=== PATIENT | male | born 1975 | race Two or more races ===

== ENCOUNTER 2024-06-02 09:00 | Inpatient (IN) | payer OTHER ==
[~2024-06-02] VITALS: Ht 188 cm; Wt 163.9 kg
--- NOTE | 2024-06-02 09:27 | ED.PDOC ---
HPI Comments 49 year old male presents to the ED with a chief complaint of chest pain onset last night. Patient states he began experiencing chest pain, described as a constant, sharp, pressure sensation as well as shortness of breath, diarrhea. For the past 4 days, patient noticed irregular heartbeats. PMHx HTN, Thyroid. Denies nausea, vomiting, abdominal pain, headache, dizziness, blurry vision, fevers, chills. No other symptoms or modifying factors present at this time. Chief Complaint: Chest Pain Time Seen by MD: 09:15 Reviewed Notes: Medications, Allergies Allergies: Coded Allergies: NO KNOWN ALLERGIES (Unverified , 06/02/24) Information Source: Patient Mode of Arrival: Ambulatory Severity: Moderate Timing: Days Duration: Since onset Prehospital treatment: None Location: Substernal Radiation: No Radiation Quality: Sharp, Pressure Onset: At Rest Cardiac Risk Factors: HTN PE Risk Factors: None History of: None Modifying Factors: Nothing Associated Signs and Symptoms: SOB, Other (diarrhea) Past Medical History PAST MEDICAL HISTORY: HTN, Thyroid Surgical History: Tonsillectomy Surgical History (Other): gastric bypass Family History Family History: Unknown Social History Smoker: Non-Smoker Alcohol: Denies ETOH Use Drugs: Denies Drug Use Lives In: Home Constitutional: denies: chills, diaphoresis, fatigue, fever, malaise, sweats, weakness, others EENTM: denies: blurred vision, double vision, ear bleeding, ear discharge, ear drainage, ear pain, ear ringing, eye pain, eye redness, hearing loss, mouth pain, mouth swelling, nasal discharge, nose bleeding, nose congestion, nose pain, photophobia, tearing, throat pain, throat swelling, voice changes, others Respiratory: reports: shortness of breath; denies: cough, hemoptysis, orthopnea, SOB at rest, SOB with excertion, stridor, wheezing, others Cardiovascular: reports: chest pain Gastrointestinal: reports: diarrhea; denies: abdomen distended, abdominal pain, blood streaked bowels, constipated, dysphagia, difficulty swallowing, hematemesis, melena, nausea, poor appetite, poor fluid intake, rectal bleeding, rectal pain, vomiting, others Genitourinary: denies: burning, dysuria, flank pain, frequency, hematuria, incontinence, penile discharge, penile sore, pain, testicle pain, testicle swelling, urgency, others Neurological: denies: dizziness, fainting, headache, left sided numbness, left sided weakness, numbness, paresthesia, pre-existing deficit, right sided numbness, right sided weakness, seizure, speech problems, tingling, tremors, weakness, others Musculoskeletal: denies: back pain, gout, joint pain, joint swelling, muscle pain, muscle stiffness, neck pain, others Integumetry: denies: bruises, change in color, change in hair/nails, dryness, laceration, lesions, lumps, rash, wounds, others Allergic/Immunocompromised: denies: Difficulty Healing, Frequent Infections, Hives, Itching, others Hematologic/Lymphatic: denies: anemia, blood clots, easy bleeding, easy bruising, swollen glands, others Endocrine: denies: excessive hunger, excessive sweating, excessive thirst, excessive urination, flushing, intolerance to cold, intolerance to heat, unexplained weight gain, unexplained weight loss, others Psychiatric: denies: anxiety, bipolar disorder, depression, hopeless, panic disorder, schizophrenia, sleepless, suicidal, others All Other Systems: Reviewed and Negative Physical Exam General Appearance: No Apparent Distress, Normal HEENT: Normal ENT Inspection, Pharynx Normal, TMs Normal Neck: Full Range of Motion, Non-Tender, Normal, Normal Inspection Respiratory: Chest Non-Tender, Lungs Clear, No Accessory Muscle Use, No Respiratory Distress, Normal Breath Sounds Cardiovascular: No Edema, No JVD, No Murmur, No Gallop, Normal Peripheral Pulses, Regular Rate/Rhythm Breast Exam: Deferred Gastrointestinal: No Organomegaly, Non Tender, No Pulsatile Mass, Normal Bowel Sounds, Soft Genitalia: Deferred Pelvic: Deferred Rectal: Deferred Extremities: No calf tenderness, Normal capillary refill, Normal inspection, Normal range of motion, Non-tender, No pedal edema Musculoskeletal : Apperance: Normal Neurologic: Alert, [employer] II-XII nml as Tested, No Motor Deficits, Normal Affect, Normal Mood, No Sensory Deficits Cerebellar Function: Normal Reflexes: Normal Skin: Dry, Normal Color, Warm Lymphatic: No Adenopathy Was a procedure done? Was a procedure done?: No CP Differential Dx Differential Diagnosis: A-fib, A-Flutter, SD, PAC's, PVC's, Renal Failure Differential Diagnosis: HTN Essential, HTN Accelerated Differential Diagnosis: Gastritis, Myocardial Infarction, Pericarditis X-Ray, Labs, Meds, VS Vital Signs Date Time Temp Pulse Resp B/P (MAP) Pulse Ox O2 Delivery O2 Flow Rate FiO2 06/02/24 12:37 113/67 06/02/24 12:25 111 06/02/24 11:59 148 06/02/24 10:01 158 06/02/24 09:46 80 20 107/60 (76) 97 06/02/24 09:36 157 06/02/24 09:24 167 06/02/24 09:02 97.4 78 24 103/58 (73) 96 97.4 Lab Test 06/02/24 12:30 06/02/24 10:26 06/02/24 09:39 Range/Units Troponin I High Sensitivity 12 10 11 </=54 ng/L White Blood Count 13.2 H 4.4-10.8 10^3/uL Red Blood Count 5.47 4.5-5.90 10^6/uL Hemoglobin 13.1 L 13.5-17.5 g/dL Hematocrit 40.9 L 41.0-53.0 % Mean Corpuscular Volume 74.8 L 80.0-100.0 fL Mean Corpuscular Hemoglobin 24.0 L 28.0-32.0 pg Mean Corpuscular Hemoglobin Concent 32.2 32.0-36.0 g/dL Red Cell Distribution Width 18.0 H 11.8-14.3 % Platelet Count 423 140-450 10^3/uL Mean Platelet Volume 8.0 6.9-10.8 fL Neutrophils (%) (Auto) 65.3 37.0-80.0 % Lymphocytes (%) (Auto) 23.8 10.0-50.0 % Monocytes (%) (Auto) 9.1 0.0-12.0 % Eosinophils (%) (Auto) 1.0 0.0-7.0 % Basophils (%) (Auto) 0.8 0.0-2.0 % Neutrophils # (Auto) 8.6 1.6-8.6 10 ^3/uL Lymphocytes # (Auto) 3.1 0.4-5.4 10 ^3/uL Monocytes # (Auto) 1.2 0-1.3 10 ^3/uL Eosinophils # (Auto) 0.1 0-0.8 10 ^3/uL Basophils # (Auto) 0.1 0-0.2 10 ^3/uL Nucleated Red Blood Cells 0.1 % D-Dimer, Quantitative 0.40 0.0-0.49 mg/L FEU Sodium Level 138 136-145 mmol/L Potassium Level 4.2 3.5-5.1 mmol/L Chloride Level 105 98-107 mmol/L Carbon Dioxide Level 22 20-31 mmol/L Anion Gap 11 5-15 Blood Urea Nitrogen 21 9-23 mg/dL Creatinine 1.42 H 0.700-1.30 mg/dL Glomerular Filtration Rate Calc 60 >90 mL/min BUN/Creatinine Ratio 14.8 10.0-20.0 Serum Glucose 146 H 74-106 mg/dL Calcium Level 10.2 8.7-10.4 mg/dL Current Medications Medications (Trade) Dose Ordered Sig/Debbie Route Start Time Stop Time Status Last Admin Sodium Chloride 3,000 ml @ 1,000 mls/hr Q3H ONCE IV 06/02/24 10:00 06/02/24 12:59 DC 06/02/24 10:00 Diltiazem HCl 125 ml @ 5 mls/hr Q24H ONCE IV 06/02/24 12:30 06/03/24 12:29 06/02/24 12:37 [place] [id number] Ph: [phone] DIAGNOSTIC IMAGING Diagnostic Imaging Report : [id number] Signed PATIENT: JUAN LOPEZ ACCT: [id number] UNIT: [id number] : 1975 LOC: ER ROOM / BED: / AGE / SEX: 49 / M ADM STATUS: REG ER SERVICE [id number] ORDERING PHYSICIAN: YURI ZAUMDIO MD PROCEDURE(s): CXRP - CHEST PORTABLE REASON: chest pain ORDER NUMBER(s): [id number], ACCESSION NUMBER(s): [id number] CHEST RADIOGRAPH Indication: chest pain Technique: Single frontal view of the chest was obtained Comparison: None FINDINGS: Lines and Tubes: None Lungs: No focal consolidation. Pleura: No effusion. No pneumothorax. Cardiomediastinal contours: Unremarkable Bones: No acute osseous abnormality. IMPRESSION: 1. No acute cardiopulmonary disease. ATED BY: MELISSA JOSE MD DICTATED DATE/TIME: 06/02/24958 SIGNED BY: MELISSA JOSE MD SIGNED DATE/TIME: 06/02/24958 CC: Time of 1ST Reevaluation: 09:45 Reevaluation 1ST: Unchanged Patient Education/Counseling: Diagnosis, Treatment, Prognosis Family Education/Counseling: No Family Present Additional Information The following tests were ordered, and results were reviewed by me: EKG-X3, BMP, CBC,TROP -x3, XY CHEST I reviewed and agreed with the following test results read by other providers: XY CHEST I discussed treatment and results with medical personnel and: Patient Comprehensive systems review obtained and negative except for what is stated in the HPI. Departure 1 Departure Time of Disposition: 13:10 ([facility] Authorization [id number] [facility]. Rhythm was unclear. Patient has no history of heart failure and tried the patient on diltiazem. Slit patient down patient became transiently hypotensive even before the diltiazem was given. Patient was started on diltiazem drip however you can rate is continuing to climb at this time. Patient is not stable for transfer and discussed with [facility] we will admit to hospital and have Cardiology evaluate.) Impression: Primary Impression: Atrial fibrillation with RVR Additional Impression: Palpitations Disposition: ADMITTED INPATIENT Admit to: [facility] Condition: Guarded Critical Care Note Critical Care Time?: Yes Critical care comment: AFib with RVR Authorized and Performed by: Yuri Zamudio MD Total critical care time: Approximately 49 minutes Due to a high probability of clinically significant, life threatening deterioration, the patient required my highest level of preparedness to intervene emergently and I personally spent this critical care time directly and personally managing the patient. This critical care time included obtaining a history; examining the patient; pulse oximetry; ordering and review of studies; arranging urgent treatment with development of a management plan; evaluation of patient's response to treatment; frequent reassessment; and, discussions with other providers. This critical care time was performed to assess and manage the high probability of imminent, life-threatening deterioration that could result in multi-organ failure. It was exclusive of separately billable procedures and treating other patients and teaching time. Please see my other sections and the rest of the note for further information on patient assessment and treatment. Stability Stability form required: No Heart Score Heart Score: Heart Score Response (Comments) Value History Slightly Suspicious 0 EKG Repolarization Disturb 1 Age 45-64 1 Risk Factors 1 or 2 risk factors 1 Troponin Normal limit 0 Total 3 I personally scribed for YURI ZAMUDIO MD ([email or web address]) on 06/02/24 at 09:27. Electronically submitted by Cyn Bermudez ([email or web address]). I personally scribed for YURI ZAMUDIO MD ([email or web address]) on 06/02/24 at 09:31. Electronically submitted by Cyn Bermudez ([email or web address]). I personally scribed for YURI ZAMUDIO MD ([email or web address]) on 06/02/24 at 09:57. Electronically submitted by Cyn Bermudez ([email or web address]). I personally scribed for YURI ZAMUDIO MD ([email or web address]) on 06/02/24 at 10:55. Electronically submitted by Cyn Bermudez ([email or web address]). YURI ZAMUDIO MD Jun 02, 2024 09:27
[2024-06-02 09:58] LABS: Basophils # (auto) 0.1 10 ^3/uL (0-0.2); Basophils % (auto) 0.8 % (0.0-2.0); Eosinophils # (auto) 0.1 10 ^3/uL (0-0.8); Hematocrit 40.9 % (41.0-53.0); Lymphocytes # (auto) 3.1 10 ^3/uL (0.4-5.4); Lymphocytes % (auto) 23.8 % (10.0-50.0); Monocytes # (auto) 1.2 10 ^3/uL (0-1.3); Neutrophils # (auto) 8.6 10 ^3/uL (1.6-8.6); Nucleated Red Blood Cells % 0.1 %
[2024-06-02 10:00] LABS: Hemoglobin 13.1 g/dL (13.5-17.5); Mean Corpuscular Hgb Conc. 32.2 g/dL (32.0-36.0); Mean Corpuscular Volume 74.8 fL (80.0-100.0); Monocytes % (auto) 9.1 % (0.0-12.0); Neutrophils % (auto) 65.3 % (37.0-80.0); Platelet Count (auto) 423 10^3/uL (140-450); Red Blood Cells 5.47 10^6/uL (4.5-5.90); White Blood Cell 13.2 10^3/uL (4.4-10.8)
[2024-06-02] MEDS: SODIUM CHLORIDE 0.9% 3,000 ML IV ONE (10:00)
--- NOTE | 2024-06-02 10:02 | DVH ---
CHEST RADIOGRAPH Indication: chest pain Technique: Single frontal view of the chest was obtained Comparison: None FINDINGS: Lines and Tubes: None Lungs: No focal consolidation. Pleura: No effusion. No pneumothorax. Cardiomediastinal contours: Unremarkable Bones: No acute osseous abnormality. IMPRESSION: 1. No acute cardiopulmonary disease.
[2024-06-02 10:03] LABS: Chloride 105 mmol/L (98-107); Potassium 4.2 mmol/L (3.5-5.1); Sodium 138 mmol/L (136-145)
[2024-06-02 10:04] LABS: Anion Gap 11 (5-15); Calcium 10.2 mg/dL (8.7-10.4); Carbon Dioxide 22 mmol/L (20-31)
[2024-06-02 10:09] LABS: BUN/Creatinine Ratio 14.8 (10.0-20.0); Blood Urea Nitrogen 21 mg/dL (9-23)
[2024-06-02 10:11] LABS: Glucose 146 mg/dL (74-106)
[2024-06-02] MEDS: dilTIAZem 25 MG/5 ML VIAL IV ONE (12:31)
[2024-06-02] MEDS: dilTIAZem 125mg/125ml BAG KIT 125 ML IV ONE (12:37)
[2024-06-02] MEDS ORDERED: ACETAMINOPHEN 325 MG TAB PO PRN (15:15)
[2024-06-02] MEDS ORDERED: ONDANSETRON HCL 4 MG/2 ML VIAL IV PRN (15:15)
[2024-06-02] MEDS ORDERED: NITROGLYCERIN 0.4 MG SL TAB SL PRN (15:15)
[2024-06-02] MEDS ORDERED: MORPHINE SULFATE 4 MG/ML SYR/VIAL IV PRN (15:15)
[2024-06-02] MEDS ORDERED: MORPHINE SULFATE INJ 2 MG/ml SYRG IV PRN (15:15)
[2024-06-02] MEDS: dilTIAZem 125mg/125ml BAG KIT 125 ML IV SCH (15:30)
--- NOTE | 2024-06-02 15:35 | DVHHP2 ---
History of Present Illness Reason for Visit: Chest pain with shortness of breath History of Present Illness Clint Lares is a 49-year-old male with past medical history of hypertension, hypothyroidism, gastric bypass, and tonsillectomy who presents to the ED with chest pain, palpitations, nausea, diarrhea, and shortness of breath x4 days. Per patient the pain is 4/10 sharp and constant. He reports that he was sleeping at the time last night and developed the chest pain suddenly. Patient's Rajani is at the bedside and states that he has been having palpitations for the last several days. Patient also reports that he is trying to move a trailer with his right knee and strained his knee. This is an unrelated incident. Patient also reports a dry cough with no phlegm production. Patient reports that he uses a cane now to help with ambulating because he is unable to put pressure on his right foot due to the pain in his right knee. Patient denies any recent sick contacts fever, chills, lightheadedness, dizziness, numbness, tingling, or vomiting. Cardiovascular: HTN Endocrine: Hypothyroidism Past Surgical History: Other (Gastric bypass), Tonsillectomy Family History: None Smoke: No ALCOHOL: none Drugs: None Lives: with Family Domestic Violence: Neg Review of Systems Respiratory: Shortness of breath Cardiovascular: Chest Pain Gastrointestinal: Nausea, Diarrhea Allergies: Coded Allergies: NO KNOWN ALLERGIES (Unverified , 06/02/24) Medications Current Medications Medications Dose Ordered Sig/Debbie Route Start Time Stop Time Status Last Admin Dose Admin Ceftriaxone Sodium 50 ml @ 100 mls/hr DAILY@09 IV 06/02/24 15:15 UNV Aspirin 81 mg DAILY PO 06/03/24 10:00 UNV Atorvastatin Calcium 40 mg HS PO 06/02/24 22:00 UNV Morphine Sulfate 2 mg Q30MP PRN IV 06/02/24 15:15 UNV Acetaminophen 650 mg Q6HP PRN PO 06/02/24 15:15 UNV Ondansetron HCl 4 mg Q4HP PRN IV 06/02/24 15:15 UNV Nitroglycerin 0.4 mg Q5MINP PRN SL 06/02/24 15:15 UNV Morphine Sulfate 2 mg Q30M PRN IV 06/02/24 15:15 UNV Exam Vital Signs Vital Signs Date Time Temp Pulse Resp B/P (MAP) Pulse Ox O2 Delivery O2 Flow Rate FiO2 06/02/24 14:00 99 Nasal Cannula* 2 28 06/02/24 13:32 127 13 100/60 (73) 06/02/24 09:02 97.4 97.4 General Appearance: Alert, Oriented X3, Cooperative, mild distress HEENT: Atraumatic, PERRLA, EOMI, Mucous membr. moist/pink Respiratory: Clear to auscultation, Normal air movement Cardiovascular: Normal S1, Normal S2, No murmurs Abdominal: Soft, No tenderness Extremities: Normal pulses Skin: No significant lesion Neuro: Normal speech, Normal tone, Sensation intact Psych/Mental Status: Mental status NL, Mood NL Labs/Xrays Labs Test 06/02/24 12:30 06/02/24 09:39 Range/Units Troponin I High Sensitivity 12 </=54 ng/L White Blood Count 13.2 H 4.4-10.8 10^3/uL Red Blood Count 5.47 4.5-5.90 10^6/uL Hemoglobin 13.1 L 13.5-17.5 g/dL Hematocrit 40.9 L 41.0-53.0 % Mean Corpuscular Volume 74.8 L 80.0-100.0 fL Mean Corpuscular Hemoglobin 24.0 L 28.0-32.0 pg Mean Corpuscular Hemoglobin Concent 32.2 32.0-36.0 g/dL Red Cell Distribution Width 18.0 H 11.8-14.3 % Platelet Count 423 140-450 10^3/uL Mean Platelet Volume 8.0 6.9-10.8 fL Neutrophils (%) (Auto) 65.3 37.0-80.0 % Lymphocytes (%) (Auto) 23.8 10.0-50.0 % Monocytes (%) (Auto) 9.1 0.0-12.0 % Eosinophils (%) (Auto) 1.0 0.0-7.0 % Basophils (%) (Auto) 0.8 0.0-2.0 % Neutrophils # (Auto) 8.6 1.6-8.6 10 ^3/uL Lymphocytes # (Auto) 3.1 0.4-5.4 10 ^3/uL Monocytes # (Auto) 1.2 0-1.3 10 ^3/uL Eosinophils # (Auto) 0.1 0-0.8 10 ^3/uL Basophils # (Auto) 0.1 0-0.2 10 ^3/uL Nucleated Red Blood Cells 0.1 % D-Dimer, Quantitative 0.40 0.0-0.49 mg/L FEU Sodium Level 138 136-145 mmol/L Potassium Level 4.2 3.5-5.1 mmol/L Chloride Level 105 98-107 mmol/L Carbon Dioxide Level 22 20-31 mmol/L Anion Gap 11 5-15 Blood Urea Nitrogen 21 9-23 mg/dL Creatinine 1.42 H 0.700-1.30 mg/dL Glomerular Filtration Rate Calc 60 >90 mL/min BUN/Creatinine Ratio 14.8 10.0-20.0 Serum Glucose 146 H 74-106 mg/dL Calcium Level 10.2 8.7-10.4 mg/dL CHEST RADIOGRAPH Indication: chest pain Technique: Single frontal view of the chest was obtained Comparison: None FINDINGS: Lines and Tubes: None Lungs: No focal consolidation. Pleura: No effusion. No pneumothorax. Cardiomediastinal contours: Unremarkable Bones: No acute osseous abnormality. IMPRESSION: 1. No acute cardiopulmonary disease. Assessment/Plan Assessment/Plan Assessment AFib RVR Chest pain Intractable nausea and with diarrhea and shortness of breath Leukocytosis rule out sepsis History of hypertension History of hypothyroidism History of gastric bypass History of tonsillectomy Plan Admit to [facility] Diltiazem drip Lactic IV antibiotics-ceftriaxone Blood cultures Urine culture IV fluids given in ED UA D-dimer EKG Troponin negative x3 Chest x-ray noted Aspirin Statins Echo ordered UDS TSH Lipid A1c Mag level X-ray right knee ordered Home medications reconciled DVT prophylaxis-Lovenox PUD prophylaxis-Protonix Discussed plan of care with patient, patient's , and nurse Cardiology consult Plan discussed with: Patient, Spouse My Orders Orders - ANTONIO HAILE [employer]DER[employer] Procedure Category Date Status Time Ceftriaxone 1gm/50ml PHA 06/02/24 Logged D5w (Rocephin) 15:15 Admit ADMIT 06/02/24 Transmitted 15:15 Code Status CODE 06/02/24 Transmitted 15:15 Vital Signs CHAPIS 06/02/24 In Process 15:15 Gill Box Operator CHAPIS 06/02/24 In Process 15:15 Cardiac DIET 06/02/24 Transmitted Diet-2gna,Lofat,Lochol Dinner Aspirin Tablet PHA 06/03/24 Logged 10:00 Atorvastatin (Lipitor) PHA 06/02/24 Logged 22:00 Morphine Sulfate PHA 06/02/24 Logged Injection 15:15 Acetaminophen Tablet PHA 06/02/24 Logged (Tylenol Tablet) 15:15 Complete Blood Count LAB 06/03/24 Verified 04:00 Basic Metabolic Panel LAB 06/03/24 Verified 04:00 Magnesium LAB 06/03/24 Verified 04:00 Lipid Panel LAB 06/03/24 Verified 04:00 Echo 2d Mode Cardiac US 06/02/24 Logged DOP 15:15 Ondansetron Hcl PHA 06/02/24 Logged (Zofran) 15:15 Electrocardigram EKG 06/03/24 Logged 04:00 Troponin-I Hs LAB 06/02/24 Logged 15:15 Cardiac [facility] 06/02/24 In Process Rehabilitation - Outpa Nitroglycerin PHA 06/02/24 Logged Sublingual (Ntrostat 15:15 Morphine Sulfate PHA 06/02/24 Logged Injection 15:15 Stat Ekg For Chest [facility] 06/02/24 In Process Pain 15:15 Notify Md Of Changes [facility] 06/02/24 In Process From Base 15:15 Inspector Timers For [facility] 06/02/24 In Process 24 Hours 15:15 Emergency Dysrhythmia [facility] 06/02/24 In Process Protocol 15:15 Rhythm Strips Once [facility] 06/02/24 In Process Every Shift 15:15 Oxygen By Nasal RT 06/02/24 Transmitted Cannula 15:15 Thyroid Stimulating LAB 06/02/24 Logged Hormone 15:15 Hemoglobin A1c LAB 06/02/24 Logged 15:15 Magnesium LAB 06/02/24 Logged 15:15 * Cardiology Consult CONS 06/02/24 Transmitted 15:15 Diltiazem Drip PHA 06/02/24 Transmitted Cardizem 15:15 Enoxaparin Sodium PHA 06/02/24 Verified (Lovenox) 15:30 Date of Service: Jun 02, 2024 Billing Provider: ANTONIO HAILE Common Visit Codes: [id number] INP/OBS CARE (HIGH) ANTONIO HAILE Jun 02, 2024 15:35
[2024-06-02 15:42] LABS: Urine Bacteria None Seen /hpf (None Seen)
[2024-06-02] MEDS: cefTRIAXone 1GM/50ML D5W 50 ML IV SCH (15:52)
[2024-06-02 16:00] LABS: Urine Blood Negative /uL (Negative); Urine Clarity Clear (Clear); Urine Color Light-Yellow (Yellow); Urine Mucus FEW (None Seen); Urine Protein, UAD Negative (Negative); Urine Specific Gravity 1.015 (1.001-1.035); Urine Squamous Epithelial Cell None Seen /hpf (<5); Urine Urobilinogen Normal (Negative); Urine WBC 1 /HPF (0-3); Urine pH 5.5 (5.0-9.0)
--- NOTE | 2024-06-02 16:03 | DVHINCON2 ---
Date Seen: Jun 02, 2024 Referring Physician ANITA Woody Reason for Consultation Afib RVR History of Present Illness This is a 49-year-old male patient who presents to emergency room with chief complaint of chest pain, palpitations, and shortness of breath that began last night. He also describes chest pain that he states is provoked with the palpitations, intermittent, tight in nature, midsternal and nonradiating. He c omes to the emergency room for further evaluation. Initial twelve lead electrocardiogram reveals a narrow complex tachycardia, likely atrial flutter. The patient was given Cardizem 20 mg IV once and then initiated on a Cardizem drip per emergency room provider. At time of assessment, the patient appears to be in atrial fibrillation on chair trimmer with uncontrolled heart rate. Troponin levels have been negative. Significant past medical history includes atrial fibrillation (not on NOAC), hypertension, thyroid disease, and morbid obesity. The patient reports he used to see a laboratory animal care veterinarian in the past, but no longer sees one in the outpatient setting. Past Medical History Past medical history reviewed. No other significant than mentioned above. Past Surgical History Gastric bypass Tonsillectomy Cholecystectomy Family History Family history reviewed. Social History Denies the use of tobacco, alcohol or illicit drugs. Allergies: Coded Allergies: NO KNOWN ALLERGIES (Unverified , 06/02/24) Home Meds Reported Medications Methocarbamol (Methocarbamol) 750 Mg Tab, TAB PO 06/02/24 Lisinopril & Hydrochlorothiazi (Lisinopril/Hydrochlorothi) 1 Tab Tab, 10-12 MG PO DAILY, #30 TAB 5 Refills 06/02/24 Semaglutide (Ozempic) 2 Mg/3 Ml Inj, 2 MG SC QWEEKLY, INJ 06/02/24 Levothyroxine Sodium (Levothyroxine Sodium) 137 Mcg Tab, 137 MCG PO QAM for 30 Days 06/02/24 Home Meds Home medications reviewed. Current Medications Current Medications Medications (Trade) Dose Ordered Sig/Debbie Route PRN Reason Start Time Stop Time Status Last Admin Ceftriaxone Sodium 50 ml @ 100 mls/hr DAILY@09 IV 06/02/24 15:15 06/02/24 15:52 Aspirin 81 mg DAILY PO 06/03/24 10:00 Atorvastatin Calcium (Lipitor) 40 mg HS PO 06/02/24 22:00 Morphine Sulfate 2 mg Q30MP PRN IV FOR CHEST PAIN 06/02/24 15:15 06/02/24 15:39 DC Acetaminophen (Tylenol Tablet) 650 mg Q6HP PRN PO MILD PAIN (1-3 PAIN SCALE) 06/02/24 15:15 Ondansetron HCl (Zofran) 4 mg Q4HP PRN IV NAUSEA / VOMITING 06/02/24 15:15 Nitroglycerin (Ntrostat Sublingual) 0.4 mg Q5MINP PRN SL FOR CHEST PAIN 06/02/24 15:15 Morphine Sulfate 2 mg Q30M PRN IV FOR CHEST PAIN 06/02/24 15:15 Diltiazem HCl 125 ml @ 5 mls/hr Q24H IV 06/02/24 15:15 Enoxaparin Sodium (Lovenox) 40 mg DAILY SC 06/03/24 10:00 Review of Systems Constitutional: No symptom reported Ears, Nose, & Throat: No symptom reported Eyes: No symptom reported Neurological: No symptoms reported Pulmonary/Respiratory: Shortness of breath Cardiovascular: Chest pain, palpitations Gastrointestinal: No symptom reported Genitourinary: No symptom reported Musculoskeletal: No symptom reported Skin: No symptom reported Psychiatric: No symptom reported Endocrine: No symptom reported Hematologic/Lymphatic: No symptom reported Vital Signs Vital Signs Date Time Temp Pulse Resp B/P (MAP) Pulse Ox O2 Delivery O2 Flow Rate FiO2 06/02/24 14:00 99 Nasal Cannula* 2 28 06/02/24 13:32 127 13 100/60 (73) 06/02/24 09:02 97.4 97.4 Physical Exam General Appearance: Cooperative. Morbid obesity Pulmonary/Respiratory: Clear, bilateral breaths sounds. Cardiovascular/Chest: Irregular rate and rhythm. Peripheral Pulses: 2+ Radial (R). 2+ Radial (L). 2+ Pedal (R). 2+ Pedal (L) Abdominal Exam: Normal bowel sounds. Ankle Exam: Negative ankle edema Lower extremities: Negative lower extremity edema Neuro/Mental Status: A/OX4, coherent. Thoughts/Psych: Normal thought pattern. Appropriate mood and affect. Good judgment and insight. Appearance: No acute distress. Skin Exam: Normal inspection. Normal color. Warm and dry. Labs/Diagnostic Data Labs Test 06/02/24 15:14 06/02/24 12:30 06/02/24 09:39 Range/Units Troponin I High Sensitivity 12 </=54 ng/L White Blood Count 13.2 H 4.4-10.8 10^3/uL Red Blood Count 5.47 4.5-5.90 10^6/uL Hemoglobin 13.1 L 13.5-17.5 g/dL Hematocrit 40.9 L 41.0-53.0 % Mean Corpuscular Volume 74.8 L 80.0-100.0 fL Mean Corpuscular Hemoglobin 24.0 L 28.0-32.0 pg Mean Corpuscular Hemoglobin Concent 32.2 32.0-36.0 g/dL Red Cell Distribution Width 18.0 H 11.8-14.3 % Platelet Count 423 140-450 10^3/uL Mean Platelet Volume 8.0 6.9-10.8 fL Neutrophils (%) (Auto) 65.3 37.0-80.0 % Lymphocytes (%) (Auto) 23.8 10.0-50.0 % Monocytes (%) (Auto) 9.1 0.0-12.0 % Eosinophils (%) (Auto) 1.0 0.0-7.0 % Basophils (%) (Auto) 0.8 0.0-2.0 % Neutrophils # (Auto) 8.6 1.6-8.6 10 ^3/uL Lymphocytes # (Auto) 3.1 0.4-5.4 10 ^3/uL Monocytes # (Auto) 1.2 0-1.3 10 ^3/uL Eosinophils # (Auto) 0.1 0-0.8 10 ^3/uL Basophils # (Auto) 0.1 0-0.2 10 ^3/uL Nucleated Red Blood Cells 0.1 % D-Dimer, Quantitative 0.40 0.0-0.49 mg/L FEU Sodium Level 138 136-145 mmol/L Potassium Level 4.2 3.5-5.1 mmol/L Chloride Level 105 98-107 mmol/L Carbon Dioxide Level 22 20-31 mmol/L Anion Gap 11 5-15 Blood Urea Nitrogen 21 9-23 mg/dL Creatinine 1.42 H 0.700-1.30 mg/dL Glomerular Filtration Rate Calc 60 >90 mL/min BUN/Creatinine Ratio 14.8 10.0-20.0 Serum Glucose 146 H 74-106 mg/dL Calcium Level 10.2 8.7-10.4 mg/dL Magnesium Level 2.1 1.6-2.6 mg/dL Assessment Narrow complex tachycardia, likely atrial flutter Atrial fibrillation (not on NOAC therapy) Rule out structural heart disease Thyroid disease Morbid obesity Plan/Recommendation We will continue with following plan/recommendations (): * Echocardiogram to evaluate cardiac function * ?[id number] VASc score: 1 point * Initiate therapeutic Lovenox while inpatient * Rate control, beta-yesica. Up titrate as tolerated by blood pressure * Continue amiodarone drip * Monitor and replete electrolytes as needed, keep potassium greater than four and magnesium greater than two * Close Cardiac surveillance * Labs: TSH, drug screen Case discussed with . Thank you for allowing us to care for this patient. Please call with any questions or concerns. Critical care time spent: 43 minutes This medical document was created using an electronic medical record system with voice recognition software and computerized dictation system. Although this document has been carefully reviewed, there might still be some phonetic and typographical errors. Occasional wrong-word or ``sound-alike substitutions may have occurred due to the inherent limitations of voice recognition software. These areas are purely typographical due to imperfections of the software programs and do not reflect any compromise in the patient's medical care. Please read the chart carefully and recognize, using context, where these substitutions have occurred. Plan discussed with: Patient, Spouse NYHA Physical activity limitations: NA Date of Service: Jun 02, 2024 Billing Provider: OSMANY ARELLANO Cardiology Common Codes: 71400-[id number] INP/OBS CARE (High) Cardiology Consultation Codes: [id number] CONSULT <45MIN OSMANY ARELLANO Jun 02, 2024 16:03
[2024-06-02 16:19] LABS: Amphetamine Screen, Urine Neg (NEGATIVE); Barbiturate Scree,Urine Neg (NEGATIVE); Opiate Scree,Urine Neg (NEGATIVE)
[2024-06-02 16:20] LABS: Benzodiazephine Screen, Urine Neg (NEGATIVE); Cocaine Screen, Urine Neg (NEGATIVE); Phencyclidine Screen, Urine Neg (NEGATIVE)
[2024-06-02] MEDS ORDERED: LISI-285 PO (16:31)
[2024-06-02] MEDS ORDERED: SEMA2INJ3 SC (16:31)
[2024-06-02] MEDS ORDERED: LEVO137T3 PO (16:31)
[2024-06-02 17:03] LABS: Cannabinoid Screen, Urine Neg (NEGATIVE)
[2024-06-02] MEDS ORDERED: METH-1182 PO (17:18)
[2024-06-02] MEDS: ENOXAPARIN SOD 150 MG/1 ML SYRINGE SC ONE (17:26)
[2024-06-02] MEDS: AMIODARONE BOLUS KIT 100 ML IV ONE (17:33)
[2024-06-02] MEDS: PANTOPRAZOLE 40 MG/10 ML VIAL INJ IV SCH (18:08)
[2024-06-02] MEDS: AMIODARONE 360mg/200mL PREMIX 200 ML IV ONE (18:08)
[2024-06-02] MEDS: METHOCARBAMOL 500 MG TAB PO SCH (18:46)
--- NOTE | 2024-06-02 18:55 | ECG ---
[facility] Test Date: 2024-06-02 Test Time: 10:01:22 Pat Name: JUAN LOPEZ Department: ED Room: 0270T Gender: M Pantry Cook: migel : 1975 Requested By: YURI AWAN Order Number: [id number] Reading MD: Nael Curtis Measurements Intervals [place] Rate: 158 P: 216 [place]: 69 QRS: 50 QRSD: 98 T: -79 QT: 364 QTc: 590 Interpretive Statements Sinus or ectopic atrial tachycardia Repol abnrm suggests ischemia, diffuse leads Prolonged QT interval Electronically Signed On 06-03-2024 18:45:04 PDT by Nael Curtis Please click the below link to view image of tracing.
--- NOTE | 2024-06-02 18:55 | ECG ---
[facility] Test Date: 2024-06-02 Test Time: 09:24:08 Pat Name: JUAN LOPEZ Department: ED Room: 0270T Gender: M Tile Designer: chrissie : 1975 Requested By: YURI AWAN Order Number: [id number] Reading MD: Nael Curtis Measurements Intervals [place] Rate: 167 P: 109 [place]: 104 QRS: 25 QRSD: 122 T: 25 QT: 327 QTc: 546 Interpretive Statements Sinus tachycardia Ventricular premature complex Left bundle branch block Artifact in lead(s) I,III,aVL and baseline wander in lead(s) V3,V5 Electronically Signed On 06-03-2024 18:44:47 PDT by Nael Curtis Please click the below link to view image of tracing.
--- NOTE | 2024-06-02 18:57 | ECG ---
[facility] Test Date: 2024-06-02 Test Time: 12:25:32 Pat Name: JUAN LOPEZ Department: ED Room: 0270T Gender: M Marshmallow Runner: migel : 1975 Requested By: YURI AWAN Order Number: [id number] Reading MD: Nael Curtis Measurements Intervals [place] Rate: 111 P: 0 RI: 0 QRS: 48 QRSD: 173 T: -31 QT: 342 QTc: 465 Interpretive Statements Atrial fibrillation Nonspecific intraventricular conduction delay Electronically Signed On 06-03-2024 18:47:34 PDT by Nael Curtis Please click the below link to view image of tracing.
--- NOTE | 2024-06-02 18:57 | DVH ---
CLINICAL INDICATION: right knee pain TECHNIQUE: 2 radiographic views of the right knee were obtained. Comparison: None FINDINGS/IMPRESSION: There is no evidence of acute fracture or dislocation. The visualized joint space is well maintained. The alignment is anatomical. There is no radiopaque foreign body.
[2024-06-02 19:45] VITALS: PULSE 135; RESP 17; O2SAT 95
--- NOTE | 2024-06-02 20:33 | DVH ---
Bilateral lower extremity venous duplex Clinical History: ro dvt Comparison: None Technique: Duplex Doppler evaluation of the deep venous systems of both lower extremities from the co mmon femoral veins to the popliteal veins including color Doppler and spectral/pulsed waveform analys is was performed. Findings: RIGHT SIDE: The common femoral vein demonstrates appropriate compressibility and waveform variability. There is compressibility/patency of the great saphenous vein at the proximal thigh. The femoral vein demonstrates appropriate compressibility and waveform variability. The deep femoral vein demonstrates appropriate compressibility and waveform variability. The popliteal vein demonstrates appropriate compressibility and waveform variability. There is color flow at the tibioperoneal trunk and in the posterior tibial vein. LEFT SIDE: The common femoral vein demonstrates appropriate compressibility and waveform variability. There is compressibility/patency of the great saphenous vein at the proximal thigh. The femoral vein demonstrates appropriate compressibility and waveform variability. The deep femoral vein demonstrates appropriate compressibility and waveform variability. The popliteal vein demonstrates appropriate compressibility and waveform variability. There is color flow at the tibioperoneal trunk and in the posterior tibial vein. Impression: 1. No right or left femoropopliteal venous thrombosis.
[2024-06-02] MEDS: ATORVASTATIN 20 MG TAB PO SCH (21:57)
[2024-06-02] MEDS: METOPROLOL TARTRATE 25 MG TAB PO SCH (21:57)
[2024-06-03] VITALS (8 sets, daily range): BP systolic 107–124; BP diastolic 57–74; PULSE 59–132; RESP 18–20; TEMP 97.8–98.2; O2SAT 94–100
[2024-06-03] MEDS: AMIODARONE 360mg/200mL PREMIX 200 ML IV SCH
[2024-06-03] MEDS: ENOXAPARIN SOD 150 MG/1 ML SYRINGE SC SCH (05:55)
[2024-06-03] MEDS: LEVOTHYROXINE SODIUM 25 MCG TAB PO SCH (06:00)
[2024-06-03] MEDS: LEVOTHYROXINE SODIUM 112 MCG TAB PO SCH (06:00)
[2024-06-03 06:13] LABS: Basophils # (auto) 0.1 10 ^3/uL (0-0.2); Basophils % (auto) 1.4 % (0.0-2.0); Eosinophils # (auto) 0.4 10 ^3/uL (0-0.8); Eosinophils % (auto) 3.6 % (0.0-7.0); Hemoglobin 11.4 g/dL (13.5-17.5); Lymphocytes # (auto) 3.3 10 ^3/uL (0.4-5.4); Mean Corpuscular Hemoglobin 24.4 pg (28.0-32.0); Monocytes # (auto) 0.9 10 ^3/uL (0-1.3); White Blood Cell 10.1 10^3/uL (4.4-10.8)
[2024-06-03 06:15] LABS: Hematocrit 35.3 % (41.0-53.0); Lymphocytes % (auto) 32.5 % (10.0-50.0); Mean Corpuscular Hgb Conc. 32.4 g/dL (32.0-36.0); Mean Corpuscular Volume 75.4 fL (80.0-100.0); Monocytes % (auto) 8.5 % (0.0-12.0); Neutrophils # (auto) 5.5 10 ^3/uL (1.6-8.6); Platelet Count (auto) 305 10^3/uL (140-450); Red Blood Cells 4.69 10^6/uL (4.5-5.90); Red Cell Distribution Width 18.4 % (11.8-14.3)
[2024-06-03 06:32] LABS: Anion Gap 9 (5-15); Calcium 9.3 mg/dL (8.7-10.4); Carbon Dioxide 23 mmol/L (20-31); Potassium 4.1 mmol/L (3.5-5.1); Sodium 139 mmol/L (136-145)
[2024-06-03 06:33] LABS: Chloride 107 mmol/L (98-107)
[2024-06-03 06:38] LABS: BUN/Creatinine Ratio 13.5 (10.0-20.0); Blood Urea Nitrogen 17 mg/dL (9-23); Cholesterol 151 mg/dL (< 200); LDL Cholesterol 97 mg/dL (< 100); Magnesium 2.2 mg/dL (1.6-2.6)
[2024-06-03 06:39] LABS: Glucose 113 mg/dL (74-106); Triglycerides 172 mg/dL (< 150)
[2024-06-03 06:40] LABS: HDL Cholesterol 32 mg/dL (40-59)
--- NOTE | 2024-06-03 07:15 | ECG ---
[facility] Test Date: 2024-06-02 Test Time: 11:59:39 Pat Name: JUAN LOPEZ Department: ED Room: [facility]0T A Gender: M Senior Wind Turbine Technician: migel : 1975 Requested By: ANTONIO HAILE Order Number: [id number] Reading MD: Nael Curtis Measurements Intervals [place] Rate: 148 P: 164 [place]: 99 QRS: 46 QRSD: 97 T: 4 QT: 328 QTc: 515 Interpretive Statements Sinus or ectopic atrial tachycardia Abnormal R-wave progression, late transition Borderline ST elevation, inferior leads Prolonged QT interval Electronically Signed On 06-03-2024 18:46:42 PDT by Nael Curtis Please click the below link to view image of tracing.
[2024-06-03] MEDS ORDERED: ENOXAPARIN SOD 40 MG/0.4 ML SYRINGE SC SCH (10:00)
[2024-06-03] MEDS: LISINOPRIL 5 MG TAB PO SCH (10:29)
[2024-06-03] MEDS: hydroCHLOROthiazide 25 MG TAB PO SCH (10:31)
[2024-06-03] MEDS: ASPirin 81 mg TAB PO SCH (10:32)
--- NOTE | 2024-06-03 13:13 | ECG ---
[facility] Test Date: 2024-06-02 Test Time: 15:25:57 Pat Name: JUAN LOPEZ Department: ED Room: [facility]0T A Gender: M Christian Science Reader: migel : 1975 Requested By: YURI AWAN Order Number: [id number] Reading MD: Nael Curtis Measurements Intervals [place] Rate: 130 P: 0 [place]: 0 QRS: 49 QRSD: 94 T: -54 QT: 335 QTc: 493 Interpretive Statements Atrial flutter Abnormal R-wave progression, late transition Borderline repolarization abnormality Borderline prolonged QT interval Electronically Signed On 06-03-2024 18:49:00 PDT by Nael Curtis Please click the below link to view image of tracing.
--- NOTE | 2024-06-03 13:22 | DVHPNRES ---
Progress Note Date Seen: Jun 03, 2024 Resident Creating Document: ADRIÁN BORREGO RESIDENT Medical Necessity Reason Pt with a Central, PICC or Fol: No Subjective Review of Systems patient seen and examined no new complains on amio drip chest tightness improved still palpitation Objective vital signs Vital Sign Date Time Temp Pulse Resp B/P (MAP) Pulse Ox O2 Delivery O2 Flow Rate FiO2 06/03/24 10:32 60 124/66 06/03/24 08:55 98.1 19 98 98.1 06/03/24 08:00 Nasal Cannula* 2 28 Total Intake and Output 06/02/24 06/02/24 06/03/24 15:00 23:00 07:00 Intake Total 30 ml 228.32 ml 182.32 ml Balance 30 ml 228.32 ml 182.32 ml medications Current Medications Medications Dose Ordered Sig/Debbie Route Start Time Stop Time Status Last Admin Dose Admin Ceftriaxone Sodium 50 ml @ 100 mls/hr DAILY@09 IV 06/02/24 15:15 06/03/24 10:28 100 MLS/HR Aspirin 81 mg DAILY PO 06/03/24 10:00 06/03/24 10:32 81 MG Atorvastatin Calcium 40 mg HS PO 06/02/24 22:00 06/02/24 21:57 40 MG Acetaminophen 650 mg Q6HP PRN PO 06/02/24 15:15 Ondansetron HCl 4 mg Q4HP PRN IV 06/02/24 15:15 Nitroglycerin 0.4 mg Q5MINP PRN SL 06/02/24 15:15 Morphine Sulfate 2 mg Q30M PRN IV 06/02/24 15:15 Enoxaparin Sodium 150 mg Q12H SC 06/03/24 05:30 06/03/24 05:55 150 MG Pantoprazole Sodium 40 mg DAILY IV 06/02/24 17:30 06/03/24 10:32 40 MG Levothyroxine Sodium 112 mcg QAM PO 06/03/24 07:00 06/03/24 06:00 112 MCG Lisinopril 10 mg DAILY PO 06/03/24 10:00 06/03/24 10:29 10 MG Methocarbamol 750 mg QID PO 06/02/24 18:00 06/03/24 05:56 750 MG Levothyroxine Sodium 25 mcg QAM PO 06/03/24 07:00 06/03/24 06:00 25 MCG Hydrochlorothiazide 12.5 mg DAILY PO 06/03/24 10:00 06/03/24 10:31 12.5 MG Metoprolol Succinate 50 mg DAILY PO 06/04/24 10:00 Examination General Appearance: Cooperative. Well developed. Well nourished. NAD, obese Head Exam: Normal inspection Neck Exam: Normal inspection. Non-tender. Normal alignment Pulmonary/Respiratory: Chest non-tender. Clear bilateral breath sounds Cardiovascular/Chest: irregular rate and rhythm. No murmurs. No JVD. Peripheral Pulses: 2+ Radial (R). 2+ Radial (L). 2+ Pedal (R). 2+ Pedal (L) Abdominal Exam: Normal bowel sounds. Soft. Nontender. No hepatospenomegaly. No masses Ankle Exam: Negative ankle edema Lower extremities: Negative lower extremity edema Neuro/Mental Status: A&O x4. Coherent Thoughts/Psych: Normal thought pattern. Appropriate mood and affect. Good judgement and insight Appearance: In no acute distress Skin Exam: Normal inspection. Normal color. Warm. Dry laboratory and microbiology Laboratory Tests 06/03/24 04:34 Test 06/03/24 04:34 Range/Units Serum Glucose 113 H 74-106 mg/dL Problem List/Assessment/Plan Problem List/Assessment/Plan Atrial fibrillation with RVR , now rate controlled secondary coagulopathy morbid obesity hypothyroidism h/o gastric bypass Plan/assessment Dr Cazares Continue amio drip and rate control with metoprolol succinate therapeutic anticogulation with lovenox cardiology consultation ECHO pending No stable to transfer DVT prophylaxix pending Free t3 and T4 full code Plan discussed with: Patient My Orders My Orders Orders - ADRIÁN BORREGO Procedure Category Date Status Time Free T3 LAB 06/03/24 Transmitted 13:13 Free T4 (Free LAB 06/03/24 Transmitted Thyroxine) 13:13 ADRIÁN BORREGO RESIDENT Jun 03, 2024 13:22
[2024-06-03 13:48] LABS: Free T3 2.53 pg/mL (2.3-4.2)
[2024-06-03 13:49] LABS: Free T4 (Free Thyroxine) 1.22 ng/dL (0.89-1.76)
--- NOTE | 2024-06-03 16:20 | DVHPN2 ---
Consult Progress Note Subjective Other Systems: Patient remains in atrial fibrillation with uncontrolled rate on source inspector. Denies any cardiac symptoms at time of assessment Objective vital signs Vital Sign Date Time Temp Pulse Resp B/P (MAP) Pulse Ox O2 Delivery O2 Flow Rate FiO2 06/03/24 13:00 97.8 81 19 118/71 (87) 94 97.8 06/03/24 08:00 Nasal Cannula* 2 28 Total Intake and Output 06/02/24 06/02/24 06/03/24 15:00 23:00 07:00 Intake Total 30 ml 228.32 ml 182.32 ml Balance 30 ml 228.32 ml 182.32 ml medications Current Medications Medications Dose Ordered Sig/Debbie Route Start Time Stop Time Status Last Admin Dose Admin Aspirin 81 mg DAILY PO 06/03/24 10:00 06/03/24 10:32 81 MG Atorvastatin Calcium 40 mg HS PO 06/02/24 22:00 06/02/24 21:57 40 MG Acetaminophen 650 mg Q6HP PRN PO 06/02/24 15:15 Ondansetron HCl 4 mg Q4HP PRN IV 06/02/24 15:15 Nitroglycerin 0.4 mg Q5MINP PRN SL 06/02/24 15:15 Morphine Sulfate 2 mg Q30M PRN IV 06/02/24 15:15 Enoxaparin Sodium 150 mg Q12H SC 06/03/24 05:30 06/03/24 05:55 150 MG Pantoprazole Sodium 40 mg DAILY IV 06/02/24 17:30 06/03/24 10:32 40 MG Levothyroxine Sodium 112 mcg QAM PO 06/03/24 07:00 06/03/24 06:00 112 MCG Lisinopril 10 mg DAILY PO 06/03/24 10:00 06/03/24 10:29 10 MG Methocarbamol 750 mg QID PO 06/02/24 18:00 06/03/24 13:30 750 MG Levothyroxine Sodium 25 mcg QAM PO 06/03/24 07:00 06/03/24 06:00 25 MCG Hydrochlorothiazide 12.5 mg DAILY PO 06/03/24 10:00 06/03/24 10:31 12.5 MG Metoprolol Succinate 50 mg DAILY PO 06/04/24 10:00 Examination: GENERAL:Normal, LUNGS:Normal, CVS:Abnormal (Atrial fibrillation/flutter with uncontrolled rate), NEURO:Normal laboratory and microbiology Laboratory Tests 06/03/24 04:34 Test 06/03/24 04:34 Range/Units Serum Glucose 113 H 74-106 mg/dL Problem List/Assessment/Plan Problem List/Assessment/Plan Narrow complex tachycardia, likely atrial flutter Atrial fibrillation (not on NOAC therapy) Rule out structural heart disease Thyroid disease Morbid obesity Plan/Recommendation (): * Echocardiogram to evaluate cardiac function * ?[id number] VASc score: 1 point * Initiate therapeutic Lovenox while inpatient * Rate control, beta-yesica. Up titrate as tolerated by blood pressure * Continue amiodarone drip * Monitor and replete electrolytes as needed, keep potassium greater than four and magnesium greater than two * Close Cardiac surveillance Case discussed with . Thank you for allowing us to care for this patient. Please call with any questions or concerns. This medical document was created using an electronic medical record system with voice recognition software and computerized dictation system. Although this document has been carefully reviewed, there might still be some phonetic and typographical errors. Occasional wrong-word or ``sound-alike substitutions may have occurred due to the inherent limitations of voice recognition software. These areas are purely typographical due to imperfections of the software programs and do not reflect any compromise in the patient's medical care. Please read the chart carefully and recognize, using context, where these substitutions have occurred. Plan discussed with: Patient Date of Service: Jun 03, 2024 Billing Provider: OSMANY ARELLANO Common Visit Codes: [id number] INP/OBS CARE(HIGH) OSMANY ARELLANO Jun 03, 2024 16:20
--- NOTE | 2024-06-03 18:27 | DVHSR ---
APPROVED REPORT EXAM: Two-dimensional and M-mode echocardiogram with Doppler and color Doppler. Blood Pressure: 122/72 mmHg INDICATION Chest Pain RISK FACTORS Height: 74, Weight: 361 DIMENSIONS LVDd5.4 (3.8-5.7cm)LA (2D)4.9 (1.9-4.0cm)Aortic Root (2.0-3.7cm) LVDs4.5 (2.5-4.0cm)LA (MM) (1.9-4.0cm)Aortic Cusp Exc (1.5-2.0cm) EF (%) 35.0 (55-70%)Rt. Atrium4.7 (1.9-4.0cm)Asc. Aorta cm IVSd1.3 (0.7-1.1cm)RV (D) (1.8-2.4cm) PWd1.5 (0.7-1.1cm) Mitral Valve MitralMitral Stenosis E/A ratio0.02D MVAcm2 Aortic Valve Aortic ValveAortic Stenosis V10.99m/[place] Mean GR.2mmHg V20.97m/[place] Peak GR.4mmHg Pulmonic Valve V20.71m/s Other Information Technically limited study due to body habitus, patient position and irregular rhythm. Conclusion Technically difficult study. Concentric LVH with biatrial enlargement and aortic root enlargement. Valves appear to be structurally normal. EF of 35% with moderate global hypokinesis. Dopplers unremarkable. No pericardial effusion masses or vegetations.
[2024-06-03] MEDS: METOPROLOL TARTRATE 25 MG TAB PO ONE (21:48)
[2024-06-04 01:00] VITALS: BP 111/70; PULSE 60; RESP 18; TEMP 98.7; O2SAT 95
[2024-06-04 05:00] VITALS: BP 98/69; PULSE 68; RESP 18; TEMP 97.8; O2SAT 95
[2024-06-04 06:58] LABS: Anion Gap 9 (5-15); Carbon Dioxide 23 mmol/L (20-31); Chloride 106 mmol/L (98-107); Potassium 4.2 mmol/L (3.5-5.1); Sodium 138 mmol/L (136-145)
[2024-06-04 06:59] LABS: Calcium 9.5 mg/dL (8.7-10.4)
[2024-06-04 07:04] LABS: BUN/Creatinine Ratio 12.7 (10.0-20.0); Blood Urea Nitrogen 16 mg/dL (9-23); Glucose 105 mg/dL (74-106)
[2024-06-04 07:14] LABS: Eosinophils # (auto) 0.3 10 ^3/uL (0-0.8)
[2024-06-04 07:18] LABS: Basophils # (auto) 0.2 10 ^3/uL (0-0.2); Basophils % (auto) 2.1 % (0.0-2.0); Eosinophils % (auto) 3.7 % (0.0-7.0); Hematocrit 38.4 % (41.0-53.0); Hemoglobin 12.2 g/dL (13.5-17.5); Lymphocytes # (auto) 2.6 10 ^3/uL (0.4-5.4); Lymphocytes % (auto) 28.5 % (10.0-50.0); Mean Corpuscular Hemoglobin 24.1 pg (28.0-32.0); Mean Corpuscular Hgb Conc. 31.7 g/dL (32.0-36.0); Mean Corpuscular Volume 76.1 fL (80.0-100.0); Monocytes # (auto) 0.8 10 ^3/uL (0-1.3); Monocytes % (auto) 9.2 % (0.0-12.0); Neutrophils # (auto) 5.2 10 ^3/uL (1.6-8.6); Neutrophils % (auto) 56.5 % (37.0-80.0); Nucleated Red Blood Cells % 0.1 %; Platelet Count (auto) 299 10^3/uL (140-450); Red Blood Cells 5.04 10^6/uL (4.5-5.90); Red Cell Distribution Width 18.2 % (11.8-14.3); White Blood Cell 9.2 10^3/uL (4.4-10.8)
[2024-06-04 08:00] VITALS: PULSE 112
[2024-06-04 09:57] VITALS: BP 107/71; PULSE 70; RESP 17; TEMP 97.9; O2SAT 98
[2024-06-04] MEDS: EMPAGLIFLOZIN 10 MG TAB PO SCH (10:31)
[2024-06-04] MEDS: SPIRONOLACTONE 25 MG TAB PO SCH (10:31)
[2024-06-04] MEDS: METOPROLOL SUCCINATE XL 50 MG TAB PO SCH (10:32)
[2024-06-04] MEDS: VALSARTAN 80 MG TAB PO SCH (10:32)
[2024-06-04 13:00] VITALS: BP 104/60; PULSE 66; RESP 17; TEMP 98.1; O2SAT 98
--- NOTE | 2024-06-04 13:16 | DVHPN2 ---
Consult Progress Note Subjective Patient reports: Feels better Review of Systems: CVS:Normal (Denies CP, Palpitations, SOB) Objective vital signs Vital Sign Date Time Temp Pulse Resp B/P (MAP) Pulse Ox O2 Delivery O2 Flow Rate FiO2 06/04/24 10:32 107/71 06/04/24 10:32 70 06/04/24 09:57 97.9 17 98 97.9 06/03/24 20:00 Nasal Cannula* 2 28 Total Intake and Output 06/03/24 06/03/24 06/04/24 15:00 23:00 07:00 Intake Total 50 ml 1060 ml 800 ml Balance 50 ml 1060 ml 800 ml medications Current Medications Medications Dose Ordered Sig/Debbie Route Start Time Stop Time Status Last Admin Dose Admin Aspirin 81 mg DAILY PO 06/03/24 10:00 06/04/24 10:33 81 MG Atorvastatin Calcium 40 mg HS PO 06/02/24 22:00 06/03/24 21:42 40 MG Acetaminophen 650 mg Q6HP PRN PO 06/02/24 15:15 Enoxaparin Sodium 150 mg Q12H SC 06/03/24 05:30 06/04/24 06:21 150 MG Pantoprazole Sodium 40 mg DAILY IV 06/02/24 17:30 06/04/24 10:29 40 MG Levothyroxine Sodium 112 mcg QAM PO 06/03/24 07:00 06/04/24 06:20 112 MCG Methocarbamol 750 mg QID PO 06/02/24 18:00 06/04/24 12:10 750 MG Levothyroxine Sodium 25 mcg QAM PO 06/03/24 07:00 06/04/24 06:20 25 MCG Metoprolol Succinate 50 mg DAILY PO 06/04/24 10:00 06/04/24 10:32 50 MG Valsartan 80 mg DAILY PO 06/04/24 10:00 06/04/24 10:32 80 MG Spironolactone 25 mg DAILY PO 06/04/24 10:00 06/04/24 10:31 25 MG Empaglifozin 10 mg DAILY PO 06/04/24 10:00 06/04/24 10:31 10 MG Examination: CVS:Normal (Telemetry reviewed, Converted to SR this am currently normal sinus rhythm at 62 bpm) laboratory and microbiology Laboratory Tests 06/04/24 04:43 Test 06/04/24 04:43 Range/Units Serum Glucose 105 74-106 mg/dL Problem List/Assessment/Plan Problem List/Assessment/Plan Problem List/Assessment/Plan Problem List/Assessment/Plan Narrow complex tachycardia, likely atrial flutter Atrial fibrillation (not on NOAC therapy) new onset Rule out structural heart disease Thyroid disease Morbid obesity Cardiomyopathy Systolic HF, EF 35% Plan/Recommendation (): * Echocardiogram to evaluate cardiac function * ?[id number] VASc score: 1 point * Initiate therapeutic Lovenox while inpatient * Rate control, beta-yesica. Up titrate as tolerated by blood pressure * Continue amiodarone drip * Monitor and replete electrolytes as needed, keep potassium greater than four and magnesium greater than two * Close Cardiac surveillance Case discussed with . Converted to sinus rhythm this morning. Amiodarone changed to 200 mg p.o. twice daily. Patient continue x1 month followed by 200 mg daily. Continue metoprolol 50 mg p.o. daily. On full-dose Lovenox, plan to switch to Eliquis 5 mg p.o. twice daily upon discharge. Echo showing significantly reduced EF of 35% with monitoring global hypokinesis, no significant valvular structural abnormalities. 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 Outpatient follow up for ischemic workup. Continue GDMT and titrate as tolerated Thank you for allowing us to care for this patient. Please call with any questions or concerns. This medical document was created using an electronic medical record system with voice recognition software and computerized dictation system. Although this document has been carefully reviewed, there might still be some phonetic and typographical errors. Occasional wrong-word or ``sound-alike substitutions may have occurred due to the inherent limitations of voice recognition software. These areas are purely typographical due to imperfections of the software programs and do not reflect any compromise in the patient's medical care. Please read the chart carefully and recognize, using context, where these substitutions have occurred. Thank you for allowing me to participate in the management of this patient. The treatment plan was discussed with and agreed upon by patient/family including requesting consultants and ordering of imaging/procedures. Plan discussed with: Patient Date of Service: Jun 04, 2024 Billing Provider: BILL CASTRO [facility] Common Visit Codes: [id number] INP/OBS CARE(HIGH) BILL [facility]STR[facility] Jun 04, 2024 13:16
[2024-06-04] MEDS: AMIODARONE HCL 200 MG TAB PO ONE (13:50)
[2024-06-04] MEDS ORDERED: ASPI-325 PO (14:19)
[2024-06-04] MEDS ORDERED: METO-6 PO (14:19)
[2024-06-04] MEDS ORDERED: APIX5TAB PO (14:19)
[2024-06-04] MEDS ORDERED: EMPA1TAB PO (14:19)
[2024-06-04] MEDS ORDERED: VALS1TAB57 PO (14:19)
[2024-06-04] MEDS ORDERED: AMIO200T13 PO (14:19)
[2024-06-04] MEDS ORDERED: ATOR20TA50 PO (14:19)
[2024-06-04] MEDS ORDERED: SPIR25TA PO (14:19)
--- NOTE | 2024-06-04 14:19 | DVHDSRES ---
Discharge Summary Date of Admission Resident Creating Document: SHELL GUEVARA RESIDENT Jun 02, 2024 at 15:15 Date of Discharge: Jun 04, 2024 Labs/Diagnostic Data: Laboratory Results Test 06/04/24 04:43 06/03/24 04:34 06/02/24 17:27 06/02/24 16:26 White Blood Count 9.2 10^3/uL (4.4-10.8) Red Blood Count 5.04 10^6/uL (4.5-5.90) Hemoglobin 12.2 g/dL (13.5-17.5) Hematocrit 38.4 % (41.0-53.0) Mean Corpuscular Volume 76.1 fL (80.0-100.0) Mean Corpuscular Hemoglobin 24.1 pg (28.0-32.0) Mean Corpuscular Hemoglobin Concent 31.7 g/dL (32.0-36.0) Red Cell Distribution Width 18.2 % (11.8-14.3) Platelet Count 299 10^3/uL (140-450) Mean Platelet Volume 8.5 fL (6.9-10.8) Neutrophils (%) (Auto) 56.5 % (37.0-80.0) Lymphocytes (%) (Auto) 28.5 % (10.0-50.0) Monocytes (%) (Auto) 9.2 % (0.0-12.0) Eosinophils (%) (Auto) 3.7 % (0.0-7.0) Basophils (%) (Auto) 2.1 % (0.0-2.0) Neutrophils # (Auto) 5.2 10 ^3/uL (1.6-8.6) Lymphocytes # (Auto) 2.6 10 ^3/uL (0.4-5.4) Monocytes # (Auto) 0.8 10 ^3/uL (0-1.3) Eosinophils # (Auto) 0.3 10 ^3/uL (0-0.8) Basophils # (Auto) 0.2 10 ^3/uL (0-0.2) Nucleated Red Blood Cells 0.1 % Sodium Level 138 mmol/L (136-145) Potassium Level 4.2 mmol/L (3.5-5.1) Chloride Level 106 mmol/L (98-107) Carbon Dioxide Level 23 mmol/L (20-31) Anion Gap 9 (5-15) Blood Urea Nitrogen 16 mg/dL (9-23) Creatinine 1.26 mg/dL (0.700-1.30) Glomerular Filtration Rate Calc 69 mL/min (>90) BUN/Creatinine Ratio 12.7 (10.0-20.0) Serum Glucose 105 mg/dL (74-106) Calcium Level 9.5 mg/dL (8.7-10.4) Magnesium Level 2.3 mg/dL (1.6-2.6) Triglycerides Level 172 mg/dL (< 150) Cholesterol Level 151 mg/dL (< 200) LDL Cholesterol 97 mg/dL (< 100) HDL Cholesterol 32 mg/dL (40-59) Free Thyroxine (T4) Calculated 1.22 ng/dL (0.89-1.76) Free Triiodothyronine (T3) pg/mL 2.53 pg/mL (2.3-4.2) Lactic Acid Level 1.7 mmol/L (0.4-2.0) Troponin I High Sensitivity 11 ng/L (</=54) Test 06/02/24 15:14 06/02/24 09:39 Urine Color Light-yellow (Yellow) Urine Clarity Clear (Clear) Urine pH 5.5 (5.0-9.0) Urine Specific [place] 1.015 (1.001-1.035) Urine Protein Negative (Negative) Urine Ketones Negative (Negative) Urine Blood Negative /uL (Negative) Urine Nitrite Negative (Negative) Urine Bilirubin Negative (Negative) Urine Urobilinogen Normal mg/dL (Negative) Urine Leukocyte Esterase Negative /uL (Negative) Urine RBC 1 /hpf (0 - 3) Urine Microscopic WBC 1 /HPF (0-3) Urine Squamous Epithelial Cells None seen /hpf (<5) Urine Bacteria None seen /hpf (None Seen) Urine Mucus Few (None Seen) Urine Glucose Normal mg/dL (Normal) Urine Opiates Screen Neg (NEGATIVE) Urine Fentanyl Screen Neg (NEGATIVE) Urine Barbiturates Screen Neg (NEGATIVE) Urine Phencyclidine Screen Neg (NEGATIVE) Urine Amphetamines Screen Neg (NEGATIVE) Urine Benzodiazepines Screen Neg (NEGATIVE) Urine Cocaine Screen Neg (NEGATIVE) Urine Cannabinoids Screen Neg (NEGATIVE) D-Dimer, Quantitative 0.40 mg/L FEU (0.0-0.49) Hemoglobin A1c 6.3 % A1C (<5.7) Thyroid Stimulating Hormone (TSH) 5.72 uIU/mL (0.55-4.78) Other Laboratory Tests 06/04/24 04:43 Brief Hx & Hospital Course: Clint Lares is a 49-year-old male patient who presents to the ED with chief complaint of intermittent nonradiating retrosternal oppressive chest pain in variable functional class provoked by palpitations, associated with dyspnea. During ED evaluation presented EKG compatible with atrial flutter RVR with narrow QRS and no significant ST alteration, receiving IV Cardizem load and posterior drip. Denies syncope, abdominal pain, nausea, vomiting, diarrhea, sick contacts, recent travel and motor or sensory deficits. Past medical history: Hypertension, morbid obesity, hypothyroidism, persistent atrial fibrillation (chads Vasc 2/has bled 1) not under anticoagulation since previous chads Vasc was 1. Surgical history: Gastric bypass, tonsillectomy, cholecystectomy Family history: Noncontributory Social history: Lives with family. Denies current tobacco, alcohol and other drug abuse Allergies: Denies Home medication: Methocarbamol, lisinopril/hydrochlorothiazide, semaglutide, levothyroxine 137 mcg p.o. daily Brief hospital course: Persistent atrial fibrillation RVR (chads Vasc 2/has bled 1) symptomatic by chest pain and dyspnea, responding to negative chronotropic medication (received in ED diltiazem, posteriorly received amiodarone drip switch to p.o. and metoprolol) and anticoagulation. Completed echocardiogram which showed concentric left ventricular hypertrophy, biatrial enlargement, aortic root enlargement, LVEF 35% with moderate global hypokinesia. Evaluated by post closing specialist who presume tachycardia induced cardiomyopathy secondary to uncontrolled persistent atrial fibrillation, recommend at this point medical management (GDMT) and follow up as outpatient for eventual ischemic workup. Knee x-ray showed no acute pathology. Completed venous ultrasound of bilateral lower limbs which ruled out DVT. After 24 hours of amiodarone drip, patient converted to normal sinus rhythm, currently patient is on p.o. medication for rhythm control (amiodarone 200 mg p.o. b.i.d. and metoprolol succinate 50 mg p.o. daily, and on p.o. anticoagulation (apixaban 5 mg p.o. b.i.d.). Patient hemodynamically stable, asymptomatic, in condition to be discharged home. Was granted under optimal medical therapy (p.o. amiodarone, and apixaban, under GDM T, aspirin and atorvastatin until ischemic workup is completed as outpatient), gave advice on healthy lifestyle habits (weight loss, controlling cardiovascular risk factors), and follow up as outpatient with PCP and Cardiology. 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 Cazares, patient and nurses. Physical examination Patient lying in bed, in no acute distress General: Lucid, afebrile, mucosae are moist Cardiovascular: Normal S1 and S2. No murmurs, gallops or rubs Respiratory: Normal ventilation mechanics. Clear lung sounds on auscultation Abdomen: Soft, nontender, no organomegaly, normal bowel sounds MSK/skin: Mobilizes 4 limbs. Skin is dry and warm Neurological: Oriented in 3 spheres. No motor no sensitive deficits. Pupils are isocoric and reactive Operations or Procedures EXAM: Two-dimensional and M-mode echocardiogram with Doppler and color Doppler. Blood Pressure: 122/72 mmHg INDICATION Chest Pain RISK FACTORS Height: 74, Weight: 361 DIMENSIONS LVDd 5.4 (3.8-5.7cm) LA (2D) 4.9 (1.9-4.0cm) Aortic Root (2.0- 3.7cm) LVDs 4.5 (2.5-4.0cm) LA (MM) (1.9-4.0cm) Aortic Cusp Exc (1.5- 2.0cm) EF (%) 35.0 (55-70%) Rt. Atrium 4.7 (1.9-4.0cm) Asc. Aorta cm IVSd 1.3 (0.7-1.1cm) RV (D) (1.8-2.4cm) PWd 1.5 (0.7-1.1cm) Mitral Valve Mitral Mitral Stenosis E/A ratio 0.0 2D MVA cm2 Aortic Valve Aortic Valve Aortic Stenosis V1 0.99m/s AO Mean GR. 2mmHg V2 0.97m/s AO Peak GR. 4mmHg Pulmonic Valve V2 0.71m/s Other Information Technically limited study due to body habitus, patient position and irregular rhythm. Conclusion Technically difficult study. Concentric LVH with biatrial enlargement and aortic root enlargement. Valves appear to be structurally normal. EF of 35% with moderate global hypokinesis. Dopplers unremarkable. No pericardial effusion masses or vegetations. SIGNED BY: JENIFER JAVIER Sr., MD SIGNED DATE/TIME: 06/03/24 1827 HEST RADIOGRAPH Indication: chest pain Technique: Single frontal view of the chest was obtained Comparison: None FINDINGS: Lines and Tubes: None Lungs: No focal consolidation. Pleura: No effusion. No pneumothorax. Cardiomediastinal contours: Unremarkable Bones: No acute osseous abnormality. IMPRESSION: 1. No acute cardiopulmonary disease. ATED BY: MELISSA JOSE MD DICTATED DATE/TIME: 06/02/24 0959 CLINICAL INDICATION: right knee pain TECHNIQUE: 2 radiographic views of the right knee were obtained. Comparison: None FINDINGS/IMPRESSION: There is no evidence of acute fracture or dislocation. The visualized joint space is well maintained. The alignment is anatomical. There is no radiopaque foreign body. ATED BY: PRITESH ST Jr., DO DICTATED DATE/TIME: 06/02/24 1854 Bilateral lower extremity venous duplex Clinical History: ro dvt Comparison: None Technique: Duplex Doppler evaluation of the deep venous systems of both lower extremities from the common femoral veins to the popliteal veins including color Doppler and spectral/pulsed waveform analysis was performed. Findings: RIGHT SIDE: The common femoral vein demonstrates appropriate compressibility and waveform variability. There is compressibility/patency of the great saphenous vein at the proximal thigh. The femoral vein demonstrates appropriate compressibility and waveform variability. The deep femoral vein demonstrates appropriate compressibility and waveform variability. The popliteal vein demonstrates appropriate compressibility and waveform variability. There is color flow at the tibioperoneal trunk and in the posterior tibial vein. LEFT SIDE: The common femoral vein demonstrates appropriate compressibility and waveform variability. There is compressibility/patency of the great saphenous vein at the proximal thigh. The femoral vein demonstrates appropriate compressibility and waveform variability. The deep femoral vein demonstrates appropriate compressibility and waveform variability. The popliteal vein demonstrates appropriate compressibility and waveform variability. There is color flow at the tibioperoneal trunk and in the posterior tibial vein. Impression: 1. No right or left femoropopliteal venous thrombosis. 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 b.i.d. Eliquis 5 mg p.o. b.i.d. Metoprolol succinate 50 mg p.o. daily Spironolactone 25 mg p.o. daily Valsartan 80 mg p.o. daily Empagliflozin 10 mg p.o. daily Discharge Statement: "Patient was advised to return to the ER or call 911 if any headaches, dizziness, shortness of breath, chest pain, abdominal pain, bleeding, fevers, or worsening of medical condition. Patient was counseled about treatment plan, medications, possible side effects, patientverbalized understanding. All questions were answered to the best of my ability. This discharge took greater then 30 minutes in planning, reviewing documentation, counseling the patient, and discussing with other team members." ASSESSMENT ASSESSMENT Assessment Tachycardia myopathy secondary to AFib RVR (LVEF 35%) SHELL GUEVARA RESIDENT Jun 04, 2024 14:19
[2024-06-04 16:45] VITALS: BP 100/53; PULSE 68; RESP 17; TEMP 98.2; O2SAT 96
[2024-06-04] MEDS ORDERED: AMIODARONE HCL 200 MG TAB PO SCH (22:00)
== END 2024-06-04 16:59 | disposition home or self-care (01) | DRG 309 ==
LOC: ER 09:00 → OVERFLOW 15:15 → TELE-WESTW 15:26
PROVIDERS: ADMIT Internal Medicine; ATTEND Internal Medicine
DX: I48.19 Other persistent atrial fibrillation (principal); D68.69 Other thrombophilia; Z68.45 Body mass index [BMI] 70 or greater, adult; I50.20 Unspecified systolic (congestive) heart failure; I48.92 Unspecified atrial flutter; I42.9 Cardiomyopathy, unspecified; R73.9 Hyperglycemia, unspecified; Z98.84 Bariatric surgery status; E66.01 Morbid (severe) obesity due to excess calories; E78.5 Hyperlipidemia, unspecified; D50.9 Iron deficiency anemia, unspecified; I11.0 Hypertensive heart disease with heart failure; R73.03 Prediabetes; E03.9 Hypothyroidism, unspecified; Z79.899 Other long term (current) drug therapy; Z79.01 Long term (current) use of anticoagulants; Z90.49 Acquired absence of other specified parts of digestive tract
CPT/HCPCS: 36415; 71045; 73560; 80048; 80061; 80307; 81001; 83036; 83605; 83735; 84439; 84443; 84481; 84484; 85025; 85379; 93005; 93306; 93970; 96361; 96374; 99291; G0378; J2470